=== PATIENT | female | born 1950 | race Caucasian/White ===

== ENCOUNTER 2017-02-20 13:30 | Emergency (ER) | payer MEDICARE ==
[~2017-02-20] VITALS: Ht 175.3 cm; Wt 104.5 kg
[~2017-02-20 13:30] MED LIST: AMT25T PO; ATEN50TA PO; BUPR150T12 PO; BUSP10TA2 PO; CABE0.5T7 PO; CRAN400T4 PO; ETOD400T PO; FLUD0.1T PO; GABA-502 PO; HYDR-3740 PO; HYDR5TAB2 PO; INSLIS SUBQ; KLO1T PO; LEVO137T2 PO; LISI10TA PO; METH750T3 PO; METO10TA3 PO; MIRT45TA5 PO; OXYB5TAB10 PO
[2017-02-20 13:35] VITALS: BP 122/68; PULSE 60; RESP 18; O2SAT 98
--- NOTE | 2017-02-20 14:06 | ED.REPORT ---
HPI-Altered Mental Status Date of Service Feb 20, 2017 ED Provider: Storm Malhotra MD A 66 year old female with a history of [place]'s disease, chronic hyponatremia, hyperkalemia, hypertension, adrenal insufficiency and diabetes with insulin pump is brought to the ED by family due to confusion. The pt was reportedly confused this morning and also fell asleep while eating and felt too weak to stand or walk without significant difficulty. Per pt's , she was also "off" yesterday but was significantly worse today. She had been feeling well beforehand. The pt is not sure which pills she took today, but states that it is unlikely that she took anything wrong because she lays out her pills nightly. She has not had any recent medication changes. The pt was recently on amoxicillin following an asymptomatic UTI and a cough. She is concerned that her symptoms may be due to another UTI. The pt denies abdominal pain, dysuria, rash, diarrhea, numbness or focal weakness. The pt was seen by her precipitator operator for a routine lab draw, but has not received the result. Nursing Notes Stated Complaint: CONFUSED Chief Complaint: General Complaint Nursing Notes Reviewed: Yes ([place] not reconciled) Allergies: Coded Allergies: No Known Allergies (Verified , 04/06/16) Scheduled Amitriptyline (Amitriptyline) 25 Mg Tab 50 MG PO HS Atenolol (Atenolol) 50 Mg Tablet 50 MG PO BID Bupropion ER (Bupropion ER) 150 Mg Tablet.er 150 MG PO BID Buspirone (Buspirone) 10 Mg Tablet 10 MG PO BID Cabergoline (Cabergoline) 0.5 Mg Tablet 0.75 MG PO , Clonazepam (Clonazepam) 1 Mg Tablet 1 MG PO BID Cranberry Fruit (Cranberry) 400 Mg Tablet 400 MG PO HS Etodolac (Etodolac) 400 Mg Tablet 400 MG PO BID Fludrocortisone Acetate (Fludrocortisone Acetate) 0.1 Mg Tablet 0.2 MG PO BID Gabapentin (Gabapentin) 300 Mg Capsule 300 MG PO TID Hydrocodone-Acetaminophen 10-325 mg (Hydrocodone-Acetaminophen 10-325 mg) 1 Tab Tablet 1 TAB PO QID May take 1 extra tablet on bad days (Must last 1 month) Hydrocortisone (Hydrocortisone) 5 Mg Tablet 10 MG PO BID Levothyroxine (Levothyroxine) 137 Mcg Tablet 137 MCG PO QAM Lisinopril (Lisinopril) 10 Mg Tablet 20 MG PO DAILY Mirtazapine (Mirtazapine) 45 Mg Tablet 45 MG PO HS Oxybutynin Chloride (Oxybutynin Chloride) 5 Mg Tablet 5 MG PO BID Sulfamethoxazole/Trimeth 800-160 mg (Bactrim DS) 1 Each Tablet 1 TABLET PO BID Scheduled PRN Methocarbamol (Methocarbamol) 750 Mg Tablet 750 MG PO QID PRN PRN For Spasm Metoclopramide (Metoclopramide) 10 Mg Tablet 10 MG PO AC PRN PRN For Nausea Miscellaneous Medications Insulin Human Lispro (HumaLOG U100 Insulin Vial) 100 Unit/Ml Unit UNIT SUBQ use in pump as directed by prescriber. General Time Seen by MD: 13:56 Chief Complaint Confused Hx Obtained From: Patient Arrived By: Walk-in Sudden in Onset?: No Onset Occurred: 1 day ago Symptom Duration: Since onset Recent Healthcare: No recent hospitalization, Recent doctor visit Similar Sx Previous: No Past Medical History Past Medical History Notes: Admission for due to chronic hyponatremia, enterococcal UTI on 10/07/2015 - sodium [address] Jose Bowen Endocrinology: Dr. Freeman [place] Past Medical History Diabetes with insulin pump Zander's Adrenal insufficiency Pituitary tumor Arthritis Neuropathy Acute chronic hyponatremia Reports: Coronary artery disease, Hypertension Past Surgical History vagus nerve cut 1970 Thyroidectomy and radiation Family History Reviewed, not relevant Smoking History Never Smoker Social History Alcohol Use: Denies alcohol use Drug Use: Denies drug use Other Social History: Good social support, , Local resident Ambulatory Status Independent Review of Systems Constitutional: Denies: Fever Respiratory: Denies: Non-productive cough, Shortness of breath Cardiovascular: Denies: Chest pain GI: Denies: Abdominal pain, Diarrhea, Vomiting Skin: Denies Rash Neurologic: Denies: Focal weakness, Numbness Psychiatric: Reports: Confusion Complete sys rev & neg: except as marked. Female: Denies: Dysuria Physical Exam Initial Vital Signs Vital Signs (First) Date Time Temp Pulse Resp B/P Pulse Ox O2 Delivery O2 Flow Rate FiO2 02/20/17 13:35 36.8 60 18 122/68 98 Room Air Initial VS: Reviewed, Vital signs normal General/Constitutional: Awake, Alert slow to remember information and respond reportedly unable to remember information that she can usually remember (e.g. name of precipitator operator) Head / Eyes: Atraumatic, Normocephalic, PERRL, EOMI Neck: Atraumatic, Supple, Full range of motion Respiratory / Chest: Atraumatic, Breath sounds NL, Breath sounds = bilat, No respiratory distress Cardiovascular: Heart rate NL, Regular rhythm, Heart sounds NL Neurologic: Oriented X3, Speech NL, No motor deficits, No sensory deficits, CN II - XII intact ENT: Atraumatic, Airway patent, Mucous membranes moist Abdomen: Atraumatic, Soft, Non-tender Back: Atraumatic, Full range of motion Skin: Atraumatic, Color NL, No rash, Warm, Dry Psychiatric: Affect NL, Mood NL Upper Extremity / MS: Atraumatic, Full range of motion Lower Extremity / Pelvis / MS: Atraumatic, Full range of motion Interpretation & Diagnostics Lab Results Interpretation Result Diagram: 02/20/17 1537 02/20/17 1537 Test 02/20/17 15:05 02/20/17 15:37 Urine Color Straw (YELLOW) Urine Appearance Hazy (CLEAR,HAZY) Urine pH 5.5 (5.0-8.0) Urine Specific [place] 1.005 (1.003-1.035) Urine Protein Negativemg/dL (NEG,TRACE) Urine Glucose (UA) Negativemg/dL (NEGATIVE) Urine Ketones Negativemg/dL (NEGATIVE) Urine Occult Blood Trace (NEGATIVE) Urine Nitrite Positive (NEGATIVE) Urine Bilirubin Negative (NEGATIVE) Urine Urobilinogen Normalmg/dL (NORMAL) Urine Leukocyte Esterase Large (NEGATIVE) Urine RBC 0-2/hpf (0-2) Urine WBC 11-50/hpf (0-5) Urine Epithelial Cells Occasional/hpf (NONE-MOD) Urine Crystals None seen (NONE SEEN) Urine Bacteria Moderate/hpf (NONE-FEW) Urine Hyaline Casts None/lpf (NONE) Urine Granular Casts None seen (NONE SEEN) Urine Waxy Casts None seen (NONE SEEN) Urine Red Blood Cell Casts None seen (NONE SEEN) Urine White Blood Cell Casts None seen (NONE SEEN) Urine Mucus None seen (None Seen) Urine Trichomonas None seen (NONE SEEN) Urine Yeast None (NONE SEEN) Urinalysis Comment None Urine Culture Reflexed Indicated White Blood Count 6.3th/mm3 (3.8-10.1) Red Blood Count 4.61mil/mm3 (3.90-5.20) Hemoglobin 14.2g/dL (12.0-15.6) Hematocrit 43.1% (35.0-46.0) Mean Corpuscular Volume 93.5fL (81-100) Mean Corpuscular Hemoglobin 30.8pg (27.0-35.0) Mean Corpuscular Hemoglobin Concent 32.9% (32.0-37.0) Red Cell Distribution Width 13.7% (12.3-15.4) Platelet Count 232bil/L (150-400) Neutrophils (%) (Auto) 57.9% (40-74) Lymphocytes (%) (Auto) 31.6% (14-46) Monocytes (%) (Auto) 7.5% (4-12) Eosinophils (%) (Auto) 2.2% (0-5) Basophils (%) (Auto) 0.6% (0-3) Sodium Level 141mEq/L (134-144) Potassium Level 3.4mEq/L (3.5-5.2) Chloride Level 104mEq/L (97-108) Carbon Dioxide Level 21mmol/L (18-29) Blood Urea Nitrogen 9mg/dL (8-27) Creatinine 0.83mg/dL (0.57-1.00) Estimat Glomerular Filtration Rate 99mL/min (>59) Glucose Level 94mg/dL (60-99) Calcium Level 8.7mg/dL (8.5-10.1) Total Bilirubin 0.3mg/dL (0.0-1.2) Aspartate Amino Transf (AST/SGOT) 24U/L (0-50) Alanine Aminotransferase (ALT/SGPT) 16U/L (0-32) Alkaline Phosphatase 152U/L (25-165) Total Protein 7.2g/dL (6.4-8.4) Albumin 3.9g/dL (3.4-5.0) Lab Results Interpretation: CBC normal CP no hyponatremia, glucose normal UA positive for markers of infection Blood cultures pending X-Ray Chest Interpretation Chest Xray Interpretation: IMPRESSION: No acute cardiopulmonary disease process. Dictated by: Joyce Hale MD, PhD on 02/20/2017 at 15:09 Approved by: Joyce Hale MD, PhD on 02/20/2017 at 15:10 Interpretation / Wet Read by: Interpret - Radiologist CT Head Interpretation IMPRESSION: No acute intracranial disease process. Dictated by: Joyce Hale MD, PhD on 02/20/2017 at 15:04 Approved by: Joyce Hale MD, PhD on 02/20/2017 at 15:06 Interpretation / Wet Read by: Interpret - Radiologist Re-Eval/Medical Decision Med Decision/Clinical Course This is a 66-year-old female presents noting that she has had some generalized weakness and some trace confusion that started yesterday and worsened today. Is currently mentating fairly well, denies fevers chills but is worried she might have UTI, or that she has a repeat low sodium-she has had several episodes of hyponatremia causing confusion in the past requiring admission, and has been subsequently diagnosed with Zander's, but is now on steroids and saw her precipitator operator at [place] yesterday. She reports no recent illnesses or fevers that she is aware of, no recent dosing changes, reports she has been compliant. She denies headache, neck stiffness, cough, abdominal pain and has no additional complaints. On exam she is awake, alert, and clinically well-appearing in no distress. She is mentating fairly well, she states she could not remember the name of her precipitator operator in as an example of her mild confusion, but she is oriented to person, place, times, events and appears to have intact decision capacity. No focal deficits are evident. A workup was pursued, noncontrasted CT was negative. Blood work was normal, without evidence of hypoglycemia or hyponatremia. However urinalysis is multiple markers positive for infection, so the patient received a dose of ceftriaxone. She states she was only a block away from the hospital, she feels comfortable going home and returning if she is having any difficulties, neck is entirely reasonable. The patient is being discharged on a course of trimethoprim sulfa 10 days. Routine and return precautions reviewed Source of Hx: Old records Re-Evaluation/Progress : Time of Eval: 16:27 Patient Status: Condition improved Re-Evaluation/Progress Note: Pt rechecked with present. She is feeling well and prepared for discharge. Labs, radiology results, diagnosis and plan for discharge are discussed. The pt and her understand and agree with the plan. All questions are addressed at this time. Differential Diagnosis: Positive: Urinary tract infection, Negative: Carbon monoxide poisoning, Cerebrovascular accident, Closed head injury, Congestive heart failure, Dehydration, Diabetic ketoacidosis, Epidural hematoma, EtOH intoxication, Hypernatremia, Hyponatremia, Hypoperfusion, Hypotension, Hypothermia, Intracerebral hemorrhage, Sepsis Counseled Regarding: Diagnosis, Lab results, Need for follow-up, When/why to return to ED Patient Discharge & Departure Impression: Primary Impression: Urinary tract infection Urinary tract infection type: acute cystitis Hematuria presence: without hematuria Qualified Code: N30.00 - Acute cystitis without hematuria Disposition: Home Discharge Condition All VS Reviewed: Yes Additional Instructions: 1. Your sodium and other blood tests were normal today. 2. Your urine test does reveal markers of another infection, which is likely the source of the mild confusion and generalized weakness he been experiencing. He was started on an IV dose of Ceftriaxone today. 3. Take the oral antibiotic trimethoprim sulfa 1 tablet twice a day for 10 days. 4. Symptoms are expected to be rapidly improving over the next several days. 5. Return to the emergency room if no worsening symptoms occur. Referrals: OTHER,PHYSICIAN (PCP) (Family) Scribe Attestation Portions of this note were transcribed by Aric Gomes. I, Dr. Malhotra personally performed the history, physical exam and medical decision-making; I reviewed and confirmed the accuracy of the information in the transcribed note. Storm Malhotra MD Feb 20, 2017 14:06 ARIC GOMES Feb 20, 2017 14:17
[2017-02-20 15:21] VITALS: BP 155/66; PULSE 54; RESP 20; O2SAT 100
[2017-02-20 15:43] LABS: APPEARANCE,URINE HAZY (CLEAR,HAZY); COLOR,URINE STRAW (YELLOW)
[2017-02-20 15:44] LABS: OCCULT BLOOD,URINE TRACE (NEGATIVE); PH,URINE 5.5 (5.0-8.0); UROBILINOGEN,URINE NORMAL (NORMAL)
[2017-02-20] MEDS ORDERED: cefTRIAXone Inj 2,000 MG in Dextrose 5% Minibag Plus 50 ML IV ONE (15:45)
[2017-02-20 15:48] LABS: BASOPHILS % (AUTO) 0.6 % (0-3); EOSINOPHILS % (AUTO) 2.2 % (0-5); MONOCYTES % (AUTO) 7.5 % (4-12); Mean Corpuscular Hemoglobin 30.8 pg (27.0-35.0); Mean Corpuscular Volume 93.5 fL (81-100); NEUTROPHILS % (AUTO) 57.9 % (40-74); Platelet Count 232 bil/L (150-400)
--- NOTE | 2017-02-20 16:07 | DRSVH ---
PROCEDURE: CT BRAIN WITHOUT CONTRAST ([id number]) INDICATIONS: Altered LOC, confusion TECHNIQUE: Noncontrast 4.5 mm thick angled axial sections acquired from the foramen magnum to the vertex, with c oronal reformats. COMPARISON: [facility], CT, BRAIN W/O CONTRAST, 07/16/2012, 21:18. [facility], CT, BRAIN W/O CONTRAST, 03/25/2014, 4:10. FINDINGS: Image quality: Excellent. CSF spaces: Basal cisterns are patent. No extra-axial fluid collections. The ventricles are symmet martina in size and shape. Brain: No intracranial bleeds or masses. There is cerebral volume loss for age, with resultant vent ricular and sulcal prominence. There are periventricular and deep white matter chronic small vessel ischemic changes. There is intracranial internal carotid artery and vertebral artery atherosclerosis . Skull and face: Calvarium and visualized facial bones appear intact, without suspicious lesions. Sinuses: Visualized sinuses and mastoids are clear. IMPRESSION: No acute intracranial disease process. Dictated by: Joyce Hale MD, PhD on 02/20/2017 at 15:04 Approved by: Joyce Hale MD, PhD on 02/20/2017 at 15:06
--- NOTE | 2017-02-20 16:12 | DRSVH ---
PROCEDURE: X-RAY CHEST ONE VIEW, PORTABLE ([id number]) INDICATIONS: Confusion, ?pneumonia TECHNIQUE: One view of the chest was acquired. COMPARISON: [facility], CR, CHEST 2VW, 12/12/2012, 15:47. [facility], CT, CH EST WITH CONTRAST, 12/13/2012, 14:18. [facility], CR, CHEST 1VW (PORTABLE), 07/04/2013, 15 :19. [facility], CR, CHEST 1VW (PORTABLE), 03/24/2014, 23:09. FINDINGS: Surgical changes and devices: None. Lungs and pleura: No pleural effusions or pneumothorax. Lungs are clear. Right hemidiaphragm appear s elevated which may be artifactual. Recommend standard 2 view of the chest when clinically feasible. Mediastinum: Mediastinal contours appear normal. Heart size is normal. Bones and chest wall: No suspicious bony lesions. Overlying soft tissues appear unremarkable. IMPRESSION: No acute cardiopulmonary disease process. Dictated by: Joyce Hale MD, PhD on 02/20/2017 at 15:09 Approved by: Joyce Hale MD, PhD on 02/20/2017 at 15:10
[2017-02-20] MEDS ORDERED: SULF1TAB7 PO (16:33)
[2017-02-20 17:19] VITALS: BP 165/66; PULSE 57; RESP 20; O2SAT 99
== END 2017-02-20 17:20 | disposition home or self-care (01) ==
LOC: SED 13:30
DX: N30.00 Acute cystitis without hematuria (principal); B96.20 Unspecified Escherichia coli [E. coli] as the cause of diseases classified elsewhere; I10 Essential (primary) hypertension; I25.10 Atherosclerotic heart disease of native coronary artery without angina pectoris; E11.40 Type 2 diabetes mellitus with diabetic neuropathy, unspecified; Z79.4 Long term (current) use of insulin
CPT/HCPCS: 36415; 70450; 71010; 80053; 81000; 85025; 87086; 87088; 87186; 96365; 99285; J0696